=== PATIENT | male | born 1980 | race Caucasian/White ===

== ENCOUNTER 2022-08-30 10:06 | Day surgery (SDC) | payer BC ==
[2022-08-28 12:32] VITALS: BMI 33.2
[2022-08-30] MEDS ORDERED: PROPOFOL 40 ML ONE (13:17)
[2022-08-30] MEDS ORDERED: PROPOFOL 20 ML ONE ×2 (13:30→13:40)
== END 2022-08-30 14:20 | disposition home or self-care (01) ==
LOC: CSHSDC 10:06
PROVIDERS: ATTEND Internal Medicine Gastroenterology
PROC: 0DJD8ZZ Inspection of Lower Intestinal Tract, Via Natural or Artificial Opening Endoscopic (ICD-10-PCS; principal; 2022-08-30)
DX: Z12.11 Encounter for screening for malignant neoplasm of colon (principal); K92.1 Melena; K21.9 Gastro-esophageal reflux disease without esophagitis; K64.9 Unspecified hemorrhoids; R63.4 Abnormal weight loss; Z88.0 Allergy status to penicillin; Z88.2 Allergy status to sulfonamides; Z88.1 Allergy status to other antibiotic agents; Z79.899 Other long term (current) drug therapy; Z68.33 Body mass index [BMI] 33.0-33.9, adult
CPT/HCPCS: J2704